=== PATIENT | male | born 1945 | race Caucasian/White ===

== ENCOUNTER 2021-05-06 17:04 | Outpatient (CLI) | payer MEDICARE, OTHER | END 2021-05-06 17:05 | disposition short-term general hospital (02) | LOC: EMS 17:04 | DX: R47.81 Slurred speech (principal); R42 Dizziness and giddiness; R53.1 Weakness | CPT/HCPCS: A0425; A0429 ==

== ENCOUNTER 2022-05-19 13:05 | Outpatient (CLI) | payer MEDICARE, OTHER ==
--- NOTE | 2022-06-10 16:31 | Ultrasound Report ---
PROCEDURE: Ext Limited Non Vascular INDICATIONS: RIGHT THIGH LUMP TECHNIQUE: Real-time scanning was performed of the right thigh, with image documentation. COMPARISON: None. FINDINGS: The exam was originally dictated by Dr. Arredondo and was not signed off. It was put back for review today. In the palpable area of concern at the anterior right thigh, there is an 18.1 x 2.3 x 3.6 cm complex fluid collection with layering fluid fluid levels and septations. The collection appears to be locate d along the deep margin of the rectus femoris muscle. IMPRESSION: Large complex fluid collection at the palpable area of concern in the right thigh measuring up to 18. 1 cm in length is most likely a large hematoma. Associated soft tissue injury is not excluded. A isabela gn or malignant soft tissue mass is not entirely excluded, and clinical follow-up to resolution and r epeat ultrasound recommended. Alternatively, MRI with and without contrast could be performed for fur ther characterization and to evaluate for associated injuries. Reviewed by: Nubia Cunningham MD on 06/10/2022 4:30 PM PDT Approved by: Nubia Cunningham MD on 06/10/2022 4:30 PM PDT Station ID: [id number]
== END 2022-05-19 13:06 | disposition home or self-care (01) ==
LOC: DI 13:05
PROVIDERS: ATTEND Student in an Organized Health Care Education/Training Program
DX: R22.41 Localized swelling, mass and lump, right lower limb (principal)

== ENCOUNTER 2023-02-09 10:56 | Outpatient (CLI) | payer MEDICARE, OTHER ==
--- NOTE | 2023-02-09 15:29 | CT Report ---
PROCEDURE: Head WO INDICATIONS: POST TRAUMATIC HEADACHE TECHNIQUE: Noncontrast 4.5 mm thick angled axial sections acquired from the foramen magnum to the vertex. For r adiation dose reduction, the following was used: automated exposure control, adjustment of mA and/or kV according to patient size. COMPARISON: None. FINDINGS: Image quality: Excellent. The ventricular system and cortical sulci demonstrate atrophy, consistent for patient's stated age. There are areas of hypodensity in the periventricular and subcortical white matter. There is no acut e intra or extra-axial fluid collection. No acute hemorrhage, mass lesion or midline shift. Brainst em is unremarkable. Globes are symmetrical. Sinuses are aerated. Osseous structures are intact. IMPRESSION: 1. No acute intracranial process. 2. Moderate atrophy and chronic microvascular ischemic changes. Reviewed by: Meeta Veronica MD on 02/09/2023 3:28 PM PST Approved by: Meeta Veronica MD on 02/09/2023 3:28 PM [facility] Station ID: [id number]
== END 2023-02-09 10:57 | disposition home or self-care (01) ==
LOC: DI 10:56
PROVIDERS: ATTEND Student in an Organized Health Care Education/Training Program
DX: G44.309 Post-traumatic headache, unspecified, not intractable (principal)